=== PATIENT | male | born 1985 | race Caucasian/White ===

== ENCOUNTER 2017-09-13 16:16 | Emergency (ER) | payer OTHER ==
--- NOTE | 2017-09-13 18:01 | ER Document Report ---
HPI - HPI Patient complains to provider of: abscess right knee Onset: Other Onset/Duration: Gradual Quality of pain: Throbbing Severity: Moderate Pain Level: 4 Context: Patient states he has had some redness to the top of his right knee for a couple of days. Last night when he bent his knee a small amount of drainage came from area. Patient denies being bitten by anything or any injury to the knee. No fever. Patient states he has had cellulitis of his thigh in the past. Associated Symptoms: None Exacerbated by: Movement, Walking Relieved by: Denies Similar symptoms previously: Yes Recently seen / treated by doctor: No - ROS ROS below otherwise negative: Yes Systems Reviewed and Negative: Yes All other systems reviewed and negative - CONSTITUTIONAL Constitutional: DENIES: Fever - MUSCULOSKELETAL Musculoskeletal: REPORTS: Extremity pain - Right knee - DERM Skin Color: Erythema Past Medical History - General Information source: Patient - Social History Smoking Status: Never Smoker Chew tobacco use (# tins/day): No Frequency of alcohol use: None Drug Abuse: None Lives with: Spouse/Significant other Family History: Reviewed & Not Pertinent Patient has suicidal ideation: No Patient has homicidal ideation: No - Past Medical History Cardiac Medical History: Reports: Hx Hypertension Psychiatric Medical History: Reports: Hx Post Traumatic Stress Disorder Surgical Hx: Negative - Immunizations Immunizations up to date: Yes Hx Diphtheria, Pertussis, Tetanus Vaccination: No Vertical Provider Document - CONSTITUTIONAL Agree With Documented VS: Yes Exam Limitations: No Limitations General Appearance: WD/WN, No Apparent Distress - INFECTION CONTROL TRAVEL OUTSIDE OF THE [place] IN LAST 30 DAYS: No - HEENT HEENT: Atraumatic, Normocephalic - RESPIRATORY Respiratory: Breath Sounds Normal, No Respiratory Distress O2 Sat by Pulse Oximetry: 100 - CARDIOVASCULAR Cardiovascular: Regular Rate, Regular Rhythm - MUSCULOSKELETAL/EXTREMETIES Musculoskeletal/Extremeties: Edema - Mild edema and redness noted to anterior right knee of her patella. Patient is able to flex his knee but complains of pain when he does so. - NEURO Level of Consciousness: Awake, Alert, Appropriate - DERM Integumentary: Warm, Dry, Rash - Right knee Course - Re-evaluation Re-evalutation: 09/13/17 19:05 X-ray normal and this was discussed with patient. - Vital Signs Vital signs: Temp Pulse Resp BP Pulse Ox 98.5 F 96 16 120/80 100 09/13/17 16:35 09/13/17 16:35 09/13/17 16:35 09/13/17 16:35 09/13/17 16:35 Discharge - Discharge Clinical Impression: Cellulitis of right knee Condition: Good Disposition: HOME, SELF-CARE Instructions: Trimethoprim-Sulfa ([facility]), Oral Narcotic Medication ([facility]), Abscess ([facility]) Additional Instructions: Take all antibiotics as prescribed warm compresses to area frequently Redness may increase before it gets better. Allow 48-72 hours for improvement Return if swells up and feels soft like there is pus underlying. There was none evident today Follow-up with your doctor next week for recheck Prescriptions: Oxycodone HCl/Acetaminophen [Percocet 5-325 mg Tablet] 1 - 2 tab PO ASDIR PRN # 15 tablet PRN Reason: Sulfamethoxazole/Trimethoprim [Bactrim Ds Tablet] 1 each PO BID #20 tablet
[2017-09-13] MEDS ORDERED: OXYCODONE-ACETAMINOPHEN 5-325 MG TABLET PO ONE (18:02)
--- NOTE | 2017-09-13 18:38 | RADIOLOGY REPORT (SQ) ---
EXAM DESCRIPTION: KNEE RIGHT 4 VIEWS COMPLETED DATE/TIME: 09/13/2017 6:22 pm REASON FOR STUDY: pain/swelling COMPARISON: None. NUMBER OF VIEWS: Four views. TECHNIQUE: AP, lateral, and both oblique radiographic images acquired of the right knee. LIMITATIONS: None. FINDINGS: MINERALIZATION: Normal. BONES: No acute fracture or dislocation. No worrisome bone lesions. JOINT: No effusion. SOFT TISSUES: No soft tissue swelling. No radio-opaque foreign body. OTHER: No other significant finding. IMPRESSION: NEGATIVE STUDY OF THE RIGHT KNEE. NO RADIOGRAPHIC EVIDENCE OF ACUTE INJURY. TECHNICAL DOCUMENTATION: JOB ID: [id number] [employer]- All Rights Reserved
[2017-09-13 19:21] VITALS: BP 118/76
== END 2017-09-13 19:19 | disposition home or self-care (01) ==
LOC: ER 16:16
DX: L03.115 Cellulitis of right lower limb (principal); L02.415 Cutaneous abscess of right lower limb
CPT/HCPCS: 99283

== ENCOUNTER 2018-02-02 12:39 | Emergency (ER) | payer OTHER ==
--- NOTE | 2018-02-02 13:19 | ER Document Report ---
ED Medical Screen (RME) - General Chief Complaint: Chest Pain Stated Complaint: CHEST PAIN Time Seen by Provider: 02/02/18 13:18 Notes: Patient states he started with chest pain this morning. He states is intermittent. He states the last 2-3 minutes at a time and he does not know of anything that makes it better or worse. States he had it before and has come to the hospital but does not remember what the diagnosis was. He states he has never had any type of stress test. He denies any type of past medical history of cardiac disease. TRAVEL OUTSIDE OF THE [place] IN LAST 30 DAYS: No - Related Data Allergies/Adverse Reactions: NSAIDS (Non-Steroidal Anti-Inflamma Allergy (Verified 02/02/18 12:40) Past Medical History - Social History Chew tobacco use (# tins/day): Yes - 1 can/week Frequency of alcohol use: None Drug Abuse: None - Past Medical History Cardiac Medical History: Reports: Hx Hypertension Denies: Hx Heart Attack Pulmonary Medical History: Denies: Hx Asthma, Hx Pneumonia Endocrine Medical History: Denies: Hx Diabetes Mellitus Type 2 Renal/ Medical History: Denies: Hx Peritoneal Dialysis Psychiatric Medical History: Reports: Hx Post Traumatic Stress Disorder - Immunizations Immunizations up to date: Yes Hx Diphtheria, Pertussis, Tetanus Vaccination: No Physical Exam - Vital signs Vitals: Temp Pulse Resp BP Pulse Ox 98.7 F 90 18 120/83 99 02/02/18 12:48 02/02/18 12:48 02/02/18 12:48 02/02/18 12:48 02/02/18 12:48 Course - Vital Signs Vital signs: Temp Pulse Resp BP Pulse Ox 98.7 F 90 18 120/83 99 02/02/18 12:48 02/02/18 12:48 02/02/18 12:48 02/02/18 12:48 02/02/18 12:48
[2018-02-02 13:24] LABS: ABSOLUTE LYMPHOCYTES (AUTO) 1.5 10^3/uL (0.5-4.7); ABSOLUTE MONOCYTES (AUTO) 0.5 10^3/uL (0.1-1.4); ABSOLUTE NEUT (AUTO) 10.7 10^3/uL (1.7-8.2); BASOPHILS % (AUTO) 0.2 % (0-2); EOSINOPHILS % (AUTO) 0.2 % (0-6); HEMOGLOBIN 15.9 g/dL (13.5-17.0); LYMPHOCYTES % (AUTO) 11.9 % (13-45); MEAN CORPUSCULAR HEMOGLOBIN 30.7 pg (27.0-33.4); MEAN CORPUSCULAR HGB CONC 35.2 g/dL (32.0-36.0); MEAN CORPUSCULAR VOLUME 87 fl (80-97); MONOCYTES % (AUTO) 4.2 % (3-13); PLATELET COUNT 248 10^3/uL (150-450); RED BLOOD COUNT 5.16 10^6/uL (4.35-5.55); RED CELL DISTRIBUTION WIDTH 12.9 % (11.5-14.0); SEGMENTED NEUTROPHILS % (AUTO) 83.5 % (42-78); TOTAL CELLS COUNTED % (AUTO) 100 %; WHITE BLOOD COUNT 12.8 10^3/uL (4.0-10.5)
[2018-02-02 13:40] VITALS: BP 115/71
[2018-02-02 13:45] LABS: ALANINE AMINOTRANSFERASE 22 U/L (21-72); ALBUMIN 4.7 g/dL (3.5-5.0); ALKALINE PHOSPHATASE 67 U/L (38-126); ANION GAP 15 (5-19); ASPARTATE AMINO TRANSFERASE 22 U/L (17-59); BILIRUBIN,DIRECT 0.2 mg/dL (0.0-0.4); BILIRUBIN,TOTAL 0.6 mg/dL (0.2-1.3); BLOOD UREA NITROGEN 10 mg/dL (7-20); CARBON DIOXIDE 25 mmol/L (22-30); CHLORIDE 104 mmol/L (98-107); GLUCOSE 91 mg/dL (75-110); POTASSIUM 4.5 mmol/L (3.6-5.0); SODIUM 143.6 mmol/L (137-145); TOTAL PROTEIN 7.8 g/dL (6.3-8.2)
--- NOTE | 2018-02-02 13:57 | ER Document Report ---
ED Cardiac - General Chief Complaint: Chest Pain Stated Complaint: CHEST PAIN Time Seen by Provider: 02/02/18 13:18 Mode of Arrival: Ambulatory Information source: Patient Notes: Patient states that he has a history of PTSD and that he developed some chest pain this morning while at rest. He states he has had this similar chest pain multiple times in the past has been to the emergency department several times for but is never been given a diagnosis. He states he has no known cardiac history. No known stress test in the past. He states the chest pain is intermittent in the substernal chest area. It is moderate in intensity. It does not radiate. He does not know of anything that makes it better or worse. He did receive some nitro and aspirin in route but states there is no significant change in the pain. He denies any cough cold or congestion. He denies being anxious or under stress this morning. TRAVEL OUTSIDE OF THE [place] IN LAST 30 DAYS: No - Related Data Allergies/Adverse Reactions: NSAIDS (Non-Steroidal Anti-Inflamma Allergy (Verified 02/02/18 12:40) Past Medical History - General Information source: Patient - Social History Smoking Status: Former Smoker Chew tobacco use (# tins/day): Yes - 1 can/week Frequency of alcohol use: None Drug Abuse: None Family History: Reviewed & Not Pertinent Patient has suicidal ideation: No Patient has homicidal ideation: No - Past Medical History Cardiac Medical History: Reports: Hx Hypertension Denies: Hx Heart Attack Pulmonary Medical History: Denies: Hx Asthma, Hx Pneumonia Endocrine Medical History: Denies: Hx Diabetes Mellitus Type 2 Renal/ Medical History: Denies: Hx Peritoneal Dialysis Psychiatric Medical History: Reports: Hx Post Traumatic Stress Disorder - Immunizations Immunizations up to date: Yes Hx Diphtheria, Pertussis, Tetanus Vaccination: No Review of Systems - Review of Systems Constitutional: denies: Chills, Fever Cardiovascular: Chest pain, Dizziness. denies: Palpitations Respiratory: Hurts to breathe. denies: Cough Gastrointestinal: denies: Abdominal pain -: Yes All other systems reviewed and negative Physical Exam - Vital signs Vitals: Temp Pulse Resp BP Pulse Ox 98.7 F 90 18 120/83 99 02/02/18 12:48 02/02/18 12:48 02/02/18 12:48 02/02/18 12:48 02/02/18 12:48 Interpretation: Normal - General General appearance: Appears well, Alert - HEENT Head: Normocephalic, Atraumatic Eyes: Normal Pupils: PERRL - Respiratory Respiratory status: No respiratory distress Chest status: Nontender Breath sounds: Normal Chest palpation: Normal - Cardiovascular Rhythm: Regular Heart sounds: Normal auscultation Murmur: No - Abdominal Inspection: Normal Distension: No distension Bowel sounds: Normal Tenderness: Nontender Organomegaly: No organomegaly - Back Back: Normal, Nontender - Extremities General upper extremity: Normal inspection, Nontender, Normal color, Normal ROM , Normal temperature General lower extremity: Normal inspection, Nontender, Normal color, Normal ROM , Normal temperature, Normal weight bearing. No: Thomas's sign - Neurological Neuro grossly intact: Yes Cognition: Normal Orientation: AAOx4 [place] Coma Scale Eye Opening: Spontaneous [place] Coma Scale Verbal: Oriented Juan M Coma Scale Motor: Obeys Commands Juan M Coma Scale Total: 15 Speech: Normal Motor strength normal: LUE, RUE, LLE, RLE Sensory: Normal - Psychological Associated symptoms: Anxious, Tearful. No: Aggressive, Angry - Skin Skin Temperature: Warm Skin Moisture: Dry Skin Color: Normal Course - Re-evaluation Re-evalutation: 02/02/18 13:54 After my initial evaluation. Patient refused x-ray and lab work. Patient states that he would like to leave. I had a long discussion with the patient and informed him of the risk and benefits of leaving. He states that he still would like to leave AGAINST MEDICAL ADVICE. He states he does understand that there could be pathology that has not been detected. He understands that an x- ray and lab work will be used to try to detect this abnormal pathology. He understands that leaving before these tests are done puts him at risk of or permanent disability. I did inform him that his EKG is not concerning but that lab work or x-ray could reveal processes that are concerning. I did explain that sometimes chest pain can be the sign of a heart attack and that it will not initially present on EKG but may be present on the lab work. He states that he understood all these things and that he still wanted to leave AGAINST MEDICAL ADVICE. He did appear of sound mind and capable of making his own judgments and decisions. He was alert and oriented 4. - Vital Signs Vital signs: Temp Pulse Resp BP Pulse Ox 97.7 F 81 18 115/71 98 02/02/18 13:40 02/02/18 13:40 02/02/18 13:40 02/02/18 13:40 02/02/18 13:40 - Laboratory Result Diagrams: 02/02/18 12:00 02/02/18 12:00 Laboratory results interpreted by me: 02/02/18 12:00 WBC 12.8 H Seg Neutrophils % 83.5 H Lymphocytes % 11.9 L Absolute Neutrophils 10.7 H - EKG Interpretation by Me EKG shows normal: Sinus rhythm Rate: Normal Rhythm: NSR [place]/QRS: No: Right axis deviation, Left axis deviation Discharge - Discharge Clinical Impression: Chest pain at rest, Left against medical advice Disposition: AGAINST MEDICAL ADVICE Instructions: Chest Pain of Unclear Cause ([facility])
--- NOTE | 2018-02-02 15:13 | EKG REPORT ---
SEVERITY:- NORMAL ECG - SINUS RHYTHM : Confirmed by: Yenifer London 02-Feb-2018 15:12:42
== END 2018-02-02 14:02 | disposition left against medical advice (07) ==
LOC: ER 12:39
DX: R07.9 Chest pain, unspecified (principal); R42 Dizziness and giddiness; I10 Essential (primary) hypertension; Z87.891 Personal history of nicotine dependence
CPT/HCPCS: 36415; 80053; 84484; 85025; 93005; 93010; 99285

== ENCOUNTER 2020-02-08 12:55 | Emergency (ER) | payer OTHER ==
[2020-02-08 13:01] VITALS: BP 126/77
[2020-02-08] MEDS ORDERED: CLINDAMYCIN HCL 150 MG CAPSULE PO ONE (13:42)
[2020-02-08] MEDS ORDERED: LIDOCAINE 2% VISCOUS SOLN 15 ML UDCUP PO ONE (13:42)
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
== END 2020-02-08 13:56 | disposition home or self-care (01) ==
LOC: ER 12:55
DX: K02.9 Dental caries, unspecified (principal); K08.89 Other specified disorders of teeth and supporting structures; R22.0 Localized swelling, mass and lump, head; F17.290 Nicotine dependence, other tobacco product, uncomplicated; I10 Essential (primary) hypertension
CPT/HCPCS: 99282; J3490